=== PATIENT | female | born 1970 | race Caucasian/White ===

== ENCOUNTER 2021-01-15 22:13 | Inpatient (IN) | payer OTHER ==
[2021-01-15 22:37] VITALS: BMI 24.8
[2021-01-15] MEDS ORDERED: CEFTRIAXONE 1,000 MG in DEXTROSE 5%-WATER - 50 ML IVPB ONE (23:09)
[2021-01-15] MEDS ORDERED: AZITHROMYCIN IVPB 500 MG in DEXTROSE 5%-WATER - 250 ML IVPB ONE (23:09)
[2021-01-15] MEDS ORDERED: AZITHROMYCIN IVPB 500 MG/250 ML BAG IVPB ONE (23:12)
[2021-01-15] MEDS ORDERED: CEFTRIAXONE 1 GM/50 ML BAG ONE (23:12)
[2021-01-16 00:40] LABS: BASO % 0.2 % (0-2.0); EOS % 1.2 % (0-4.5); HEMATOCRIT 29.4 % (32.4-45.2); HEMOGLOBIN 9.8 GM/dL (10.7-15.3); LYMPH % 9.4 % (8-40); MCH 28.8 pg (25.7-33.7); MCHC 33.5 g/dl (32.0-36.0); MEAN CELL VOLUME 85.9 fl (80-96); MEAN PLT VOLUME 6.6 fl (7.5-11.1); MONO % 7.3 % (3.8-10.2); NEUT % 81.9 % (42.8-82.8); PLATELET COUNT 607 10^3/uL (134-434); RBC 3.42 M/mm3 (3.60-5.2); RDW 14.1 % (11.6-15.6); WHITE BLOOD COUNT 15.7 K/mm3 (4.0-10.0)
[2021-01-16 01:06] LABS: CHLORIDE 92 mmol/L (98-107); SODIUM 130 mmol/L (136-145)
[2021-01-16 01:09] LABS: ALBUMIN 2.2 g/dl (3.4-5.0); ANION GAP 7 MMOL/L (8-16); BLOOD UREA NITROGEN 8.5 mg/dL (7-18); CALCIUM 8.5 mg/dL (8.5-10.1); CO2 31 mmol/L (21-32); GLUCOSE,RANDOM 87 mg/dL (74-106)
[2021-01-16 01:12] LABS: CREATININE 0.7 mg/dL (0.55-1.3); SGOT/AST 18 U/L (15-37); SGPT/ALT 19 U/L (13-61)
[2021-01-16 01:14] LABS: BILIRUBIN,TOTAL 0.7 mg/dL (0.2-1); TOT PROT 7.5 g/dl (6.4-8.2)
[2021-01-16 01:15] LABS: ALK PHOS 196 U/L (45-117)
[2021-01-16] MEDS ORDERED: MAGNESIUM SULF 50% (8.12 MEQ/2 ML-1 GM VIAL) IVPB ONE (01:26)
[2021-01-16] MEDS ORDERED: POTASSIUM CHLORIDE TABS 20 MEQ TABLET.ER (FP) PO ONE ×2 (01:26→01:49)
[2021-01-16] MEDS ORDERED: ACETAMINOPHEN 1000 MG/100 ML VIAL IVPB ONE ×2 (01:47→16:14)
[2021-01-16] MEDS ORDERED: ACETAMINOPHEN INJECTION 100 ML IVPB ONE (01:49)
[2021-01-16] MEDS ORDERED: MAGNESIUM SULFATE IN WATER 2 GM/50 ML IVPB IVPB ONE (01:49)
[2021-01-16] MEDS ORDERED: LACTATED RINGERS SOLUTION 1000 ML INFUS.BAG IV ONE (03:06)
[2021-01-16] MEDS ORDERED: LORazepam 1 MG TABLET PO PRN (05:59)
[2021-01-16] MEDS ORDERED: FOLIC ACID INJECTION - 1 MG, THIAMINE HCL 100 MG, MULTIVIT INJECTION ADULT 10 ML in SOD... IVPB ONE (06:15)
[2021-01-16 06:36] LABS: URINE APPEARANCE CLEAR; URINE COLOR YELLOW
[2021-01-16 06:37] LABS: PH,URINE 6.5 (5.0-8.0); URINE BILIRUBIN NEGATIVE (NEGATIVE); URINE GLUCOSE (UA) NEGATIVE (NEGATIVE); URINE KETONE NEGATIVE (NEGATIVE); URINE NITRITE NEGATIVE (NEGATIVE); URINE PROTEIN NEGATIVE (NEGATIVE)
[2021-01-16 06:38] LABS: URINE LEUK ESTERASE NEGATIVE (NEGATIVE)
[2021-01-16] MEDS: AMPICILLIN NA/SULBACTAM NA 3 GM in SODIUM CHLORIDE 100 ML IVPB SCH ×4 (06:40→21:55)
[2021-01-16] MEDS: LEVOTHYROXINE NA 88 MCG TABLET (FP) PO SCH (06:40)
[2021-01-16 07:25] LABS: BASO % 0.1 % (0-2.0); EOS % 1.3 % (0-4.5); HEMATOCRIT 26.4 % (32.4-45.2); HEMOGLOBIN 8.8 GM/dL (10.7-15.3); LYMPH % 9.9 % (8-40); MCH 29.2 pg (25.7-33.7); MCHC 33.5 g/dl (32.0-36.0); MEAN CELL VOLUME 87.1 fl (80-96); MEAN PLT VOLUME 6.8 fl (7.5-11.1); MONO % 9.3 % (3.8-10.2); NEUT % 79.4 % (42.8-82.8); PLATELET COUNT 537 10^3/uL (134-434); RBC 3.03 M/mm3 (3.60-5.2); RDW 13.9 % (11.6-15.6); RETICULOCYTES 1.24 % (0.5-1.5)
[2021-01-16 07:43] LABS: URINE RBC 10 /uL (0-23.9); URINE WBC 5 /uL (0-25.8)
[2021-01-16 07:48] LABS: CALCIUM 8.4 mg/dL (8.5-10.1)
[2021-01-16 07:49] LABS: ALBUMIN 1.8 g/dl (3.4-5.0); BLOOD UREA NITROGEN 7.6 mg/dL (7-18)
[2021-01-16 07:50] LABS: MAGNESIUM 2.5 mg/dL (1.8-2.4)
[2021-01-16 07:51] LABS: PHOSPHOROUS 4.3 mg/dL (2.5-4.9)
[2021-01-16 07:53] LABS: BILIRUBIN,TOTAL 0.6 mg/dL (0.2-1); CREATININE 0.6 mg/dL (0.55-1.3)
[2021-01-16 07:54] LABS: TOT PROT 6.5 g/dl (6.4-8.2)
[2021-01-16] MEDS ORDERED: FOLIC ACID 1 MG TABLET (FP) ONE (08:16)
[2021-01-16] MEDS ORDERED: THIAMINE HCL 100 MG TABLET (FP) ONE (08:16)
[2021-01-16] MEDS: FOLIC ACID 1 MG TABLET (FP) PO SCH (08:24)
[2021-01-16] MEDS: THIAMINE HCL 100 MG TABLET (FP) PO SCH (08:25)
[2021-01-16 08:40] LABS: HIV INTERPRETATION NEGATIVE (NEGATIVE)
[2021-01-16] MEDS ORDERED: LORazepam 1 MG TABLET ONE ×2 (10:14→15:26)
[2021-01-16] MEDS: NICOTINE 14 MG/24 HOURS TOPICAL PATCH TD SCH (10:20)
[2021-01-16] MEDS: LORazepam 1 MG TABLET PO SCH ×3 (10:21→22:42)
[2021-01-16 16:57] LABS: BF WBC & OTHER NUCLEATED CELLS 6821 /mm3
[2021-01-16] MEDS ORDERED: IBUPROFEN 400 MG TABLET (FP) PO ONE ×2 (17:37→18:37)
[2021-01-16 18:20] LABS: BODY FLUID MACROPHAGES 5 %; BODY FLUID MONOCYTE 6 %
[2021-01-16] MEDS ORDERED: AMPICILLIN NA/SULBACTAM NA 3 GM VIAL ONE (21:48)
[2021-01-16] MEDS ORDERED: SODIUM CHLORIDE 100 ML IVPB ONE (21:48)
[2021-01-16] MEDS: ACETAMINOPHEN 325 MG TABLET (FP) PO PRN (22:43)
[2021-01-17] MEDS ORDERED: AMPICILLIN NA/SULBACTAM NA 3 GM VIAL ONE ×4 (01:17→20:37)
[2021-01-17] MEDS ORDERED: SODIUM CHLORIDE 100 ML IVPB ONE ×4 (01:17→20:37)
[2021-01-17] MEDS: AMPICILLIN NA/SULBACTAM NA 3 GM in SODIUM CHLORIDE 100 ML IVPB SCH ×4 (02:18→21:59)
[2021-01-17] MEDS: LORazepam 1 MG TABLET PO SCH ×4 (05:37→21:59)
[2021-01-17] MEDS: LEVOTHYROXINE NA 88 MCG TABLET (FP) PO SCH (06:06)
[2021-01-17] MEDS: ACETAMINOPHEN 325 MG TABLET (FP) PO PRN ×2 (07:43→15:43)
[2021-01-17 08:55] LABS: BASO % 0.1 % (0-2.0); EOS % 0.9 % (0-4.5); HEMOGLOBIN 8.9 GM/dL (10.7-15.3); LYMPH % 7.3 % (8-40); MCH 28.5 pg (25.7-33.7); MEAN CELL VOLUME 86.4 fl (80-96); MEAN PLT VOLUME 6.5 fl (7.5-11.1); MONO % 4.2 % (3.8-10.2); NEUT % 87.5 % (42.8-82.8); PLATELET COUNT 573 10^3/uL (134-434); RBC 3.13 M/mm3 (3.60-5.2); RDW 14.2 % (11.6-15.6); WHITE BLOOD COUNT 15.3 K/mm3 (4.0-10.0)
[2021-01-17 09:46] LABS: ALBUMIN 1.6 g/dl (3.4-5.0); BLOOD UREA NITROGEN 5.4 mg/dL (7-18); MAGNESIUM 2.4 mg/dL (1.8-2.4)
[2021-01-17 09:49] LABS: CREATININE 0.5 mg/dL (0.55-1.3); PHOSPHOROUS 3.9 mg/dL (2.5-4.9)
[2021-01-17 09:50] LABS: BILIRUBIN,TOTAL 0.4 mg/dL (0.2-1); TOT PROT 6.1 g/dl (6.4-8.2)
[2021-01-17] MEDS: NICOTINE 14 MG/24 HOURS TOPICAL PATCH TD SCH (10:38)
[2021-01-17] MEDS: THIAMINE HCL 100 MG TABLET (FP) PO SCH (10:39)
[2021-01-17] MEDS: FOLIC ACID 1 MG TABLET (FP) PO SCH (10:39)
[2021-01-17] MEDS ORDERED: ALTEPLASE (CATHFLO) 2 MG/2 ML VIAL IX ONE (10:56)
[2021-01-17] MEDS ORDERED: ALTEPLASE 50MG 10 MG in SODIUM CHLORIDE 40 ML IV ONE (11:15)
[2021-01-17] MEDS ORDERED: IBUPROFEN 400 MG TABLET (FP) PO PRN (13:50)
[2021-01-18] MEDS ORDERED: AMPICILLIN NA/SULBACTAM NA 3 GM VIAL ONE ×5 (01:27→20:06)
[2021-01-18] MEDS ORDERED: SODIUM CHLORIDE 100 ML IVPB ONE ×4 (01:31→20:07)
[2021-01-18] MEDS: LORazepam 2 MG/ML SDV VIAL IVPUSH PRN (02:01)
[2021-01-18] MEDS: AMPICILLIN NA/SULBACTAM NA 3 GM in SODIUM CHLORIDE 100 ML IVPB SCH ×4 (02:02→20:14)
[2021-01-18] MEDS: LEVOTHYROXINE NA 88 MCG TABLET (FP) PO SCH (06:45)
[2021-01-18] MEDS: LORazepam 1 MG TABLET PO SCH ×4 (06:45→22:26)
[2021-01-18 09:16] LABS: BASO % 0.3 % (0-2.0); EOS % 2.7 % (0-4.5); HEMATOCRIT 23.9 % (32.4-45.2); HEMOGLOBIN 8.3 GM/dL (10.7-15.3); LYMPH % 9.1 % (8-40); MCH 29.8 pg (25.7-33.7); MCHC 34.8 g/dl (32.0-36.0); MEAN CELL VOLUME 85.4 fl (80-96); MEAN PLT VOLUME 6.6 fl (7.5-11.1); MONO % 7.3 % (3.8-10.2); NEUT % 80.6 % (42.8-82.8); PLATELET COUNT 573 10^3/uL (134-434); RDW 14.1 % (11.6-15.6); WHITE BLOOD COUNT 14.5 K/mm3 (4.0-10.0)
[2021-01-18 09:28] LABS: ALBUMIN 1.4 g/dl (3.4-5.0); BLOOD UREA NITROGEN 6.6 mg/dL (7-18)
[2021-01-18 09:29] LABS: CALCIUM 7.5 mg/dL (8.5-10.1)
[2021-01-18 09:30] LABS: BILIRUBIN,TOTAL 0.4 mg/dL (0.2-1); TOT PROT 5.4 g/dl (6.4-8.2)
[2021-01-18 09:31] LABS: CREATININE 0.4 mg/dL (0.55-1.3)
[2021-01-18] MEDS: NICOTINE 14 MG/24 HOURS TOPICAL PATCH TD SCH (09:44)
[2021-01-18] MEDS: FOLIC ACID 1 MG TABLET (FP) PO SCH (09:44)
[2021-01-18] MEDS: THIAMINE HCL 100 MG TABLET (FP) PO SCH (09:44)
[2021-01-18 14:08] LABS: BODY FLUID ALBUMIN 2.3 g/dL (Not Estab.)
[2021-01-18] MEDS: ALTEPLASE 50MG 10 MG in SODIUM CHLORIDE 40 ML IV SCH (14:20)
[2021-01-18] MEDS: ACETAMINOPHEN 325 MG TABLET (FP) PO PRN (20:13)
[2021-01-19] MEDS ORDERED: LORazepam 0.5 MG TABLET PO PRN
[2021-01-19] MEDS: LORazepam 2 MG/ML SDV VIAL IVPUSH PRN (01:17)
[2021-01-19] MEDS ORDERED: SODIUM CHLORIDE 100 ML IVPB ONE ×4 (01:38→21:51)
[2021-01-19] MEDS ORDERED: AMPICILLIN NA/SULBACTAM NA 3 GM VIAL ONE ×4 (01:38→21:51)
[2021-01-19] MEDS: AMPICILLIN NA/SULBACTAM NA 3 GM in SODIUM CHLORIDE 100 ML IVPB SCH ×4 (02:02→21:56)
[2021-01-19] MEDS: LORazepam 0.5 MG TABLET PO SCH ×4 (04:56→23:05)
[2021-01-19] MEDS: LEVOTHYROXINE NA 88 MCG TABLET (FP) PO SCH (06:12)
[2021-01-19] MEDS: NICOTINE 14 MG/24 HOURS TOPICAL PATCH TD SCH (10:11)
[2021-01-19] MEDS: THIAMINE HCL 100 MG TABLET (FP) PO SCH (10:11)
[2021-01-19] MEDS: FOLIC ACID 1 MG TABLET (FP) PO SCH (10:11)
[2021-01-19 10:47] LABS: HEMOGLOBIN 8.5 GM/dL (10.7-15.3); MCH 29.6 pg (25.7-33.7); MCHC 34.1 g/dl (32.0-36.0); MEAN CELL VOLUME 86.8 fl (80-96); MEAN PLT VOLUME 6.8 fl (7.5-11.1); PLATELET COUNT 676 10^3/uL (134-434); RBC 2.88 M/mm3 (3.60-5.2); RDW 14.4 % (11.6-15.6); WHITE BLOOD COUNT 10.5 K/mm3 (4.0-10.0)
[2021-01-19] MEDS ORDERED: PT OWN MED DRAWER 7, Y5N ONE (10:59)
[2021-01-19 11:14] LABS: ALBUMIN 1.4 g/dl (3.4-5.0); CALCIUM 8.1 mg/dL (8.5-10.1)
[2021-01-19 11:15] LABS: BLOOD UREA NITROGEN 5.8 mg/dL (7-18)
[2021-01-19 11:18] LABS: CREATININE 0.4 mg/dL (0.55-1.3)
[2021-01-19 11:19] LABS: BILIRUBIN,TOTAL 0.3 mg/dL (0.2-1); TOT PROT 5.6 g/dl (6.4-8.2)
[2021-01-19] MEDS: ALTEPLASE 50MG 10 MG in SODIUM CHLORIDE 40 ML IV SCH (12:01)
[2021-01-19] MEDS: ACETAMINOPHEN 325 MG TABLET (FP) PO PRN (14:31)
[2021-01-19] MEDS: IBUPROFEN 400 MG TABLET (FP) PO PRN (14:37)
[2021-01-19] MEDS ORDERED: MELATONIN 5 MG TABLETS PO ONE (21:46)
[2021-01-19] MEDS ORDERED: FAMOTIDINE 10 MG TABLET PO ONE (21:46)
[2021-01-20] MEDS ORDERED: AMPICILLIN NA/SULBACTAM NA 3 GM VIAL ONE ×4 (03:01→20:42)
[2021-01-20] MEDS ORDERED: SODIUM CHLORIDE 100 ML IVPB ONE ×4 (03:02→20:43)
[2021-01-20] MEDS: AMPICILLIN NA/SULBACTAM NA 3 GM in SODIUM CHLORIDE 100 ML IVPB SCH ×4 (03:11→20:52)
[2021-01-20] MEDS ORDERED: LORazepam 0.5 MG TABLET PO ONE (05:00)
[2021-01-20] MEDS: LEVOTHYROXINE NA 88 MCG TABLET (FP) PO SCH (06:32)
[2021-01-20] MEDS: FOLIC ACID 1 MG TABLET (FP) PO SCH (10:27)
[2021-01-20] MEDS: THIAMINE HCL 100 MG TABLET (FP) PO SCH (10:27)
[2021-01-20] MEDS: NICOTINE 14 MG/24 HOURS TOPICAL PATCH TD SCH (10:28)
[2021-01-20] MEDS: IBUPROFEN 400 MG TABLET (FP) PO PRN ×2 (14:42→20:52)
[2021-01-20] MEDS ORDERED: ONDANSETRON 4 MG/2 ML VIAL IVPUSH ONE (20:08)
[2021-01-20] MEDS ORDERED: LORazepam 0.5 MG TABLET PO PRN (20:44)
[2021-01-20] MEDS: MELATONIN 5 MG TABLETS PO PRN (23:31)
[2021-01-21] MEDS ORDERED: AMPICILLIN NA/SULBACTAM NA 3 GM VIAL ONE ×4 (02:06→20:53)
[2021-01-21] MEDS ORDERED: SODIUM CHLORIDE 100 ML IVPB ONE ×4 (02:06→20:53)
[2021-01-21] MEDS: AMPICILLIN NA/SULBACTAM NA 3 GM in SODIUM CHLORIDE 100 ML IVPB SCH ×4 (02:21→21:13)
[2021-01-21] MEDS: LEVOTHYROXINE NA 88 MCG TABLET (FP) PO SCH (06:15)
[2021-01-21] MEDS: IBUPROFEN 400 MG TABLET (FP) PO PRN (06:15)
[2021-01-21] MEDS ORDERED: ALPRAZolam 1 MG TABLET PO PRN (06:23)
[2021-01-21 09:29] LABS: BASO % 0.4 % (0-2.0); EOS % 4.1 % (0-4.5); LYMPH % 13.9 % (8-40); MCH 29.4 pg (25.7-33.7); MCHC 33.4 g/dl (32.0-36.0); MEAN PLT VOLUME 6.7 fl (7.5-11.1); MONO % 8.3 % (3.8-10.2); NEUT % 73.3 % (42.8-82.8); PLATELET COUNT 756 10^3/uL (134-434); RBC 2.73 M/mm3 (3.60-5.2); RDW 14.8 % (11.6-15.6); WHITE BLOOD COUNT 9.9 K/mm3 (4.0-10.0)
[2021-01-21 09:30] LABS: CALCIUM 7.8 mg/dL (8.5-10.1)
[2021-01-21 09:31] LABS: ALBUMIN 1.5 g/dl (3.4-5.0)
[2021-01-21 09:34] LABS: CREATININE 0.6 mg/dL (0.55-1.3)
[2021-01-21 09:35] LABS: BILIRUBIN,TOTAL 0.2 mg/dL (0.2-1); TOT PROT 5.6 g/dl (6.4-8.2)
[2021-01-21] MEDS: THIAMINE HCL 100 MG TABLET (FP) PO SCH (10:18)
[2021-01-21] MEDS: PANTOPRAZOLE 40 MG TABLET PO SCH (10:18)
[2021-01-21] MEDS: FOLIC ACID 1 MG TABLET (FP) PO SCH (10:18)
[2021-01-21] MEDS: NICOTINE 14 MG/24 HOURS TOPICAL PATCH TD SCH (10:19)
[2021-01-21] MEDS: AMINO ACIDS/PROTEIN HYDROLYS 30 ML LIQUID.PKT PO SCH (17:29)
[2021-01-21] MEDS: MELATONIN 5 MG TABLETS PO PRN (21:13)
[2021-01-21] MEDS: ALPRAZolam 1 MG TABLET PO PRN (21:13)
[2021-01-22] MEDS ORDERED: AMPICILLIN NA/SULBACTAM NA 3 GM VIAL ONE ×3 (01:07→15:06)
[2021-01-22] MEDS ORDERED: SODIUM CHLORIDE 100 ML IVPB ONE ×3 (01:08→15:06)
[2021-01-22] MEDS: AMPICILLIN NA/SULBACTAM NA 3 GM in SODIUM CHLORIDE 100 ML IVPB SCH ×3 (02:00→14:51)
[2021-01-22] MEDS: LEVOTHYROXINE NA 88 MCG TABLET (FP) PO SCH (06:04)
[2021-01-22 09:03] LABS: HEMATOCRIT 24.9 % (32.4-45.2); HEMOGLOBIN 8.3 GM/dL (10.7-15.3); MCH 29.5 pg (25.7-33.7); MCHC 33.4 g/dl (32.0-36.0); MEAN CELL VOLUME 88.5 fl (80-96); MEAN PLT VOLUME 6.5 fl (7.5-11.1); PLATELET COUNT 822 10^3/uL (134-434); RBC 2.82 M/mm3 (3.60-5.2); WHITE BLOOD COUNT 9.9 K/mm3 (4.0-10.0)
[2021-01-22] MEDS: AMINO ACIDS/PROTEIN HYDROLYS 30 ML LIQUID.PKT PO SCH ×2 (10:35→17:12)
[2021-01-22] MEDS: THIAMINE HCL 100 MG TABLET (FP) PO SCH (10:36)
[2021-01-22] MEDS: NICOTINE 14 MG/24 HOURS TOPICAL PATCH TD SCH (10:36)
[2021-01-22] MEDS: MULTIVIT-MINERALS ORAL LIQUID PO SCH (10:36)
[2021-01-22] MEDS: FOLIC ACID 1 MG TABLET (FP) PO SCH (10:36)
[2021-01-22] MEDS: PANTOPRAZOLE 40 MG TABLET PO SCH (10:39)
[2021-01-22 13:28] LABS: ALBUMIN 1.6 g/dl (3.4-5.0); BILIRUBIN,TOTAL 0.1 mg/dL (0.2-1); BLOOD UREA NITROGEN 4.8 mg/dL (7-18); CREATININE 0.5 mg/dL (0.55-1.3)
[2021-01-22] MEDS: IBUPROFEN 400 MG TABLET (FP) PO PRN (14:55)
[2021-01-22] MEDS: ALPRAZolam 1 MG TABLET PO PRN (15:08)
[2021-01-22] MEDS: metroNIDAZOLE 250 MG TABLET PO SCH (22:59)
[2021-01-22] MEDS: MELATONIN 5 MG TABLETS PO PRN (22:59)
[2021-01-23] MEDS: LEVOTHYROXINE NA 88 MCG TABLET (FP) PO SCH (06:10)
[2021-01-23] MEDS: metroNIDAZOLE 250 MG TABLET PO SCH ×3 (06:10→23:00)
[2021-01-23 08:25] LABS: HEMATOCRIT 26.2 % (32.4-45.2); HEMOGLOBIN 8.7 GM/dL (10.7-15.3); MCH 29.3 pg (25.7-33.7); MCHC 33.2 g/dl (32.0-36.0); MEAN CELL VOLUME 88.3 fl (80-96); MEAN PLT VOLUME 6.3 fl (7.5-11.1); PLATELET COUNT 869 10^3/uL (134-434); RBC 2.96 M/mm3 (3.60-5.2); RDW 15.1 % (11.6-15.6); WHITE BLOOD COUNT 8.2 K/mm3 (4.0-10.0)
[2021-01-23] MEDS ORDERED: DEXTROSE 5%-WATER 100 ML IVPB ONE (08:54)
[2021-01-23] MEDS: AMINO ACIDS/PROTEIN HYDROLYS 30 ML LIQUID.PKT PO SCH ×2 (09:07→17:04)
[2021-01-23] MEDS: FOLIC ACID 1 MG TABLET (FP) PO SCH (09:20)
[2021-01-23] MEDS: THIAMINE HCL 100 MG TABLET (FP) PO SCH (09:20)
[2021-01-23] MEDS: PANTOPRAZOLE 40 MG TABLET PO SCH (09:20)
[2021-01-23] MEDS: MULTIVIT-MINERALS ORAL LIQUID PO SCH (09:21)
[2021-01-23] MEDS: NICOTINE 14 MG/24 HOURS TOPICAL PATCH TD SCH (09:21)
[2021-01-23] MEDS: CEFTRIAXONE 2 GM in DEXTROSE 5%-WATER 2 GM/100 ML BAG IVPB SCH (09:41)
[2021-01-23] MEDS ORDERED: FLUCONAZOLE 150 MG TABLET PO ONE (11:15)
[2021-01-23 12:33] LABS: ALBUMIN 1.9 g/dl (3.4-5.0); BILIRUBIN,TOTAL 0.2 mg/dL (0.2-1); BLOOD UREA NITROGEN 7.2 mg/dL (7-18); CALCIUM 8.3 mg/dL (8.5-10.1); CREATININE 0.5 mg/dL (0.55-1.3); TOT PROT 6.5 g/dl (6.4-8.2)
[2021-01-23] MEDS: ALPRAZolam 1 MG TABLET PO PRN (15:11)
[2021-01-23] MEDS: MICONAZOLE NITRATE 2% VAGINAL CREAM 45 GM TUBE VG SCH (23:00)
[2021-01-23] MEDS: MELATONIN 5 MG TABLETS PO PRN (23:12)
[2021-01-24] MEDS: ALPRAZolam 1 MG TABLET PO PRN (04:23)
[2021-01-24] MEDS: metroNIDAZOLE 250 MG TABLET PO SCH ×3 (06:16→21:15)
[2021-01-24] MEDS: LEVOTHYROXINE NA 88 MCG TABLET (FP) PO SCH (06:16)
[2021-01-24] MEDS ORDERED: DEXTROSE 5%-WATER 100 ML IVPB ONE (08:49)
[2021-01-24] MEDS ORDERED: PT OWN MED DRAWER 7, Y5N ONE (08:49)
[2021-01-24] MEDS: CEFTRIAXONE 2 GM in DEXTROSE 5%-WATER 2 GM/100 ML BAG IVPB SCH (09:03)
[2021-01-24] MEDS: AMINO ACIDS/PROTEIN HYDROLYS 30 ML LIQUID.PKT PO SCH ×2 (09:04→16:52)
[2021-01-24] MEDS: MULTIVIT-MINERALS ORAL LIQUID PO SCH (09:05)
[2021-01-24] MEDS: THIAMINE HCL 100 MG TABLET (FP) PO SCH (09:05)
[2021-01-24] MEDS: NICOTINE 14 MG/24 HOURS TOPICAL PATCH TD SCH (09:05)
[2021-01-24] MEDS: FOLIC ACID 1 MG TABLET (FP) PO SCH (09:05)
[2021-01-24] MEDS: PANTOPRAZOLE 40 MG TABLET PO SCH (09:05)
[2021-01-24] MEDS: MULTIVITAMINS (DAILY MVI) TABLET (FP) PO SCH (09:48)
[2021-01-24 10:13] LABS: HEMATOCRIT 26.1 % (32.4-45.2); HEMOGLOBIN 8.7 GM/dL (10.7-15.3); MCH 29.3 pg (25.7-33.7); MCHC 33.5 g/dl (32.0-36.0); MEAN CELL VOLUME 87.5 fl (80-96); MEAN PLT VOLUME 6.1 fl (7.5-11.1); PLATELET COUNT 886 10^3/uL (134-434); RBC 2.98 M/mm3 (3.60-5.2); RDW 15.6 % (11.6-15.6)
[2021-01-24 11:27] LABS: BLOOD UREA NITROGEN 8.5 mg/dL (7-18); CALCIUM 8.2 mg/dL (8.5-10.1); CREATININE 0.6 mg/dL (0.55-1.3)
[2021-01-24] MEDS ORDERED: ALPRAZolam 0.25 MG TABLET PO ONE (20:17)
[2021-01-24] MEDS: MICONAZOLE NITRATE 2% VAGINAL CREAM 45 GM TUBE VG SCH (21:16)
[2021-01-25] MEDS ORDERED: diphenhydrAMINE HCL 25 MG CAPSULE (FP) PO ONE (04:48)
[2021-01-25] MEDS: metroNIDAZOLE 250 MG TABLET PO SCH ×3 (05:45→22:08)
[2021-01-25] MEDS: LEVOTHYROXINE NA 88 MCG TABLET (FP) PO SCH (06:07)
[2021-01-25] MEDS: AMINO ACIDS/PROTEIN HYDROLYS 30 ML LIQUID.PKT PO SCH ×2 (08:39→17:32)
[2021-01-25] MEDS ORDERED: PT OWN MED DRAWER 7, Y5N ONE (09:26)
[2021-01-25] MEDS ORDERED: DEXTROSE 5%-WATER 100 ML IVPB ONE (09:27)
[2021-01-25] MEDS: FOLIC ACID 1 MG TABLET (FP) PO SCH (09:30)
[2021-01-25] MEDS: MULTIVITAMINS (DAILY MVI) TABLET (FP) PO SCH (09:31)
[2021-01-25] MEDS: CEFTRIAXONE 2 GM in DEXTROSE 5%-WATER 2 GM/100 ML BAG IVPB SCH (09:31)
[2021-01-25] MEDS: THIAMINE HCL 100 MG TABLET (FP) PO SCH (09:31)
[2021-01-25] MEDS: PANTOPRAZOLE 40 MG TABLET PO SCH (09:31)
[2021-01-25] MEDS: NICOTINE 14 MG/24 HOURS TOPICAL PATCH TD SCH (09:33)
[2021-01-25] MEDS: ENOXAPARIN NA (PORCINE) 40 MG/0.4 ML DISP.SYRIN SQ SCH (09:33)
[2021-01-25] MEDS: MICONAZOLE NITRATE 2% VAGINAL CREAM 45 GM TUBE VG SCH (22:09)
[2021-01-25] MEDS: MELATONIN 5 MG TABLETS PO PRN (22:09)
[2021-01-26] MEDS ORDERED: diphenhydrAMINE HCL 25 MG CAPSULE (FP) PO ONE (05:33)
[2021-01-26] MEDS: metroNIDAZOLE 250 MG TABLET PO SCH ×3 (06:23→21:40)
[2021-01-26] MEDS: LEVOTHYROXINE NA 88 MCG TABLET (FP) PO SCH (06:23)
[2021-01-26 08:52] LABS: HEMATOCRIT 27.7 % (32.4-45.2); MCH 29.2 pg (25.7-33.7); MCHC 32.5 g/dl (32.0-36.0); MEAN CELL VOLUME 89.6 fl (80-96); MEAN PLT VOLUME 6.3 fl (7.5-11.1); PLATELET COUNT 906 10^3/uL (134-434); RBC 3.09 M/mm3 (3.60-5.2); RDW 15.6 % (11.6-15.6); WHITE BLOOD COUNT 7.4 K/mm3 (4.0-10.0)
[2021-01-26 09:13] LABS: CALCIUM 8.4 mg/dL (8.5-10.1)
[2021-01-26 09:17] LABS: CREATININE 0.7 mg/dL (0.55-1.3)
[2021-01-26 09:18] LABS: BILIRUBIN,TOTAL 0.2 mg/dL (0.2-1); TOT PROT 6.9 g/dl (6.4-8.2)
[2021-01-26] MEDS ORDERED: DEXTROSE 5%-WATER 100 ML IVPB ONE (09:26)
[2021-01-26] MEDS: MULTIVITAMINS (DAILY MVI) TABLET (FP) PO SCH (09:28)
[2021-01-26] MEDS: NICOTINE 14 MG/24 HOURS TOPICAL PATCH TD SCH (09:28)
[2021-01-26] MEDS: PANTOPRAZOLE 40 MG TABLET PO SCH (09:28)
[2021-01-26] MEDS: THIAMINE HCL 100 MG TABLET (FP) PO SCH (09:28)
[2021-01-26] MEDS: ENOXAPARIN NA (PORCINE) 40 MG/0.4 ML DISP.SYRIN SQ SCH (09:28)
[2021-01-26] MEDS: FOLIC ACID 1 MG TABLET (FP) PO SCH (09:28)
[2021-01-26] MEDS: AMINO ACIDS/PROTEIN HYDROLYS 30 ML LIQUID.PKT PO SCH ×2 (09:29→17:18)
[2021-01-26] MEDS: CEFTRIAXONE 2 GM in DEXTROSE 5%-WATER 2 GM/100 ML BAG IVPB SCH (09:29)
[2021-01-26] MEDS ORDERED: ALPRAZolam 1 MG TABLET PO ONE (19:53)
[2021-01-26] MEDS: MELATONIN 5 MG TABLETS PO PRN (20:41)
[2021-01-26] MEDS: MICONAZOLE NITRATE 2% VAGINAL CREAM 45 GM TUBE VG SCH (21:40)
[2021-01-27] MEDS: metroNIDAZOLE 250 MG TABLET PO SCH ×3 (05:49→21:17)
[2021-01-27] MEDS: LEVOTHYROXINE NA 88 MCG TABLET (FP) PO SCH (06:13)
[2021-01-27 09:01] LABS: BASO % 0.9 % (0-2.0); EOS % 5.5 % (0-4.5); HEMOGLOBIN 9.6 GM/dL (10.7-15.3); LYMPH % 24.1 % (8-40); MCH 29.3 pg (25.7-33.7); MCHC 32.9 g/dl (32.0-36.0); MEAN PLT VOLUME 6.4 fl (7.5-11.1); MONO % 9.7 % (3.8-10.2); NEUT % 59.8 % (42.8-82.8); PLATELET COUNT 874 10^3/uL (134-434); RBC 3.26 M/mm3 (3.60-5.2); RDW 16.3 % (11.6-15.6); WHITE BLOOD COUNT 6.9 K/mm3 (4.0-10.0)
[2021-01-27] MEDS ORDERED: DEXTROSE 5%-WATER 100 ML IVPB ONE (09:28)
[2021-01-27 09:31] LABS: ALBUMIN 2.2 g/dl (3.4-5.0); BLOOD UREA NITROGEN 11.3 mg/dL (7-18); CALCIUM 8.4 mg/dL (8.5-10.1); CREATININE 0.6 mg/dL (0.55-1.3)
[2021-01-27 09:33] LABS: BILIRUBIN,TOTAL 0.2 mg/dL (0.2-1); TOT PROT 7.1 g/dl (6.4-8.2)
[2021-01-27] MEDS: AMINO ACIDS/PROTEIN HYDROLYS 30 ML LIQUID.PKT PO SCH ×2 (09:36→17:19)
[2021-01-27] MEDS: PANTOPRAZOLE 40 MG TABLET PO SCH (09:37)
[2021-01-27] MEDS: FOLIC ACID 1 MG TABLET (FP) PO SCH (09:37)
[2021-01-27] MEDS: MULTIVITAMINS (DAILY MVI) TABLET (FP) PO SCH (09:37)
[2021-01-27] MEDS: CEFTRIAXONE 2 GM in DEXTROSE 5%-WATER 2 GM/100 ML BAG IVPB SCH (09:37)
[2021-01-27] MEDS: ENOXAPARIN NA (PORCINE) 40 MG/0.4 ML DISP.SYRIN SQ SCH (09:37)
[2021-01-27] MEDS: NICOTINE 14 MG/24 HOURS TOPICAL PATCH TD SCH (09:37)
[2021-01-27] MEDS: THIAMINE HCL 100 MG TABLET (FP) PO SCH (09:37)
[2021-01-27] MEDS ORDERED: ALPRAZolam 0.25 MG TABLET PO PRN (13:07)
[2021-01-27] MEDS: SERTRALINE HCL 25 MG TABLET (FP) PO SCH (14:18)
[2021-01-27] MEDS: MELATONIN 5 MG TABLETS PO PRN (21:18)
[2021-01-27] MEDS: MICONAZOLE NITRATE 2% VAGINAL CREAM 45 GM TUBE VG SCH (21:23)
[2021-01-28] MEDS: metroNIDAZOLE 250 MG TABLET PO SCH ×2 (05:15→13:39)
[2021-01-28] MEDS: LEVOTHYROXINE NA 88 MCG TABLET (FP) PO SCH (06:10)
[2021-01-28] MEDS ORDERED: DEXTROSE 5%-WATER 100 ML IVPB ONE (10:28)
[2021-01-28] MEDS: FOLIC ACID 1 MG TABLET (FP) PO SCH (10:31)
[2021-01-28] MEDS: AMINO ACIDS/PROTEIN HYDROLYS 30 ML LIQUID.PKT PO SCH ×2 (10:31→17:10)
[2021-01-28] MEDS: NICOTINE 14 MG/24 HOURS TOPICAL PATCH TD SCH (10:31)
[2021-01-28] MEDS: SERTRALINE HCL 25 MG TABLET (FP) PO SCH (10:31)
[2021-01-28] MEDS: MULTIVITAMINS (DAILY MVI) TABLET (FP) PO SCH (10:31)
[2021-01-28] MEDS: CEFTRIAXONE 2 GM in DEXTROSE 5%-WATER 2 GM/100 ML BAG IVPB SCH (10:31)
[2021-01-28] MEDS: ENOXAPARIN NA (PORCINE) 40 MG/0.4 ML DISP.SYRIN SQ SCH (10:31)
[2021-01-28] MEDS: THIAMINE HCL 100 MG TABLET (FP) PO SCH (10:31)
[2021-01-28] MEDS: PANTOPRAZOLE 40 MG TABLET PO SCH (10:31)
[2021-01-28 15:17] VITALS: BP 131/81; PULSE 71; TEMP 98
== END 2021-01-28 18:05 | DRG 137 ==
LOC: JER 22:13 → JERBED 23:10 → J8W 01-16 21:38
PROVIDERS: ADMIT Internal Medicine
PROC: 0W9930Z Drainage of Right Pleural Cavity with Drainage Device, Percutaneous Approach (ICD-10-PCS; principal; 2021-01-16)
PROC: 3E0L3GC Introduction of Other Therapeutic Substance into Pleural Cavity, Percutaneous Approach (ICD-10-PCS; 2021-01-16)
PROC: 05HB33Z Insertion of Infusion Device into Right Basilic Vein, Percutaneous Approach (ICD-10-PCS; 2021-01-28)
PROC: B51MZZA Fluoroscopy of Right Upper Extremity Veins, Guidance (ICD-10-PCS; 2021-01-28)
DX: J85.1 Abscess of lung with pneumonia (principal); R64 Cachexia; E87.1 Hypo-osmolality and hyponatremia; J90 Pleural effusion, not elsewhere classified; D38.1 Neoplasm of uncertain behavior of trachea, bronchus and lung; F13.239 Sedative, hypnotic or anxiolytic dependence with withdrawal, unspecified; F17.210 Nicotine dependence, cigarettes, uncomplicated; E03.9 Hypothyroidism, unspecified; F41.8 Other specified anxiety disorders; D72.829 Elevated white blood cell count, unspecified; D75.838 Other thrombocytosis; Z68.24 Body mass index [BMI] 24.0-24.9, adult
CPT/HCPCS: 32557; 36415; 36569; 71045-TC-FY; 71046-TC-FY; 71250-TC; 71260-TC; 74176-TC; 77001-TC-FY; 80048; 80053; 80061; 81003; 82042; 82150; 82272; 82378; 82728; 82945; 83540; 83550; 83615; 83735; 83986; 84100; 84157; 84443; 84478; 84484; 84703; 85025; 85027; 85045; 86140; 86480; 87040; 87070; 87075; 87077; 87086; 87102; 87116; 87186; 87205; 87206; 87210; 87389; 88108; 88305-TC; 93005; 93010; 93306-TC; 97116-GP; 97161-GP; 99285-25; C1751; C9803; J0131; J2997; U0003; U0005